=== PATIENT | male | born 1940 | race Caucasian/White ===

== ENCOUNTER 2016-11-19 10:24 | Emergency (ER) | payer MEDICARE ==
[~2016-11-19] VITALS: Ht 172.7 cm; Wt 104.5 kg
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
[2016-11-19 10:24] VITALS: BP 165/105; PULSE 70; RESP 17; O2SAT 93
[~2016-11-19 10:24] MED LIST: ASCO500T PO; ASPI81TA40 PO; CARV12.5 PO; GLUC1TAB57 PO; LIP40 PO; MVI PO; OMEG500C3 PO; TAM4 PO
[2016-11-19] MEDS ORDERED: 0.9% Sodium Chloride 500 ML IV ONE (10:35)
[2016-11-19] MEDS: HYDROmorphone 0.5 mg/0.5 mL iSecure Syringe IVPUSH PRN ×2 (10:42→12:02)
[2016-11-19 11:00] LABS: BASOPHILS % (AUTO) 0.3 % (0-3); EOSINOPHILS % (AUTO) 2.5 % (0-5); MONOCYTES % (AUTO) 5.8 % (4-12); Mean Corpuscular Hemoglobin 30.9 pg (27.0-35.0); Mean Corpuscular Volume 90.4 fL (81-100); NEUTROPHILS % (AUTO) 82.3 % (40-74); Platelet Count 167 bil/L (150-400)
--- NOTE | 2016-11-19 11:20 | DRSVH ---
PROCEDURE: X-RAY RIGHT HUMERUS, MINIMUM TWO VIEWS ([id number]) INDICATIONS: fall TECHNIQUE: 3 views of the humerus were acquired. COMPARISON: None. FINDINGS: Bones: Displaced proximal humerus fracture is noted. Fracture lucencies extend into the humeral head. Soft tissues: No suspicious soft tissue calcifications. IMPRESSION: Comminuted proximal humerus fracture. Dictated by: Myah Robertson MD, PhD on 11/19/2016 at 11:17 Approved by: Myah Robertson MD, PhD on 11/19/2016 at 11:18
--- NOTE | 2016-11-19 11:20 | DRSVH ---
PROCEDURE: X-RAY CHEST ONE VIEW, PORTABLE ([id number]) INDICATIONS: fall TECHNIQUE: One view of the chest was acquired. COMPARISON: [facility], CR, XR CHEST 2VW, 05/23/2015, 16:15. FINDINGS: Surgical changes and devices: None. Lungs and pleura: The left-sided pleural fluid collection is noted. Mediastinum: Mediastinal contours appear normal. Heart size is normal. Bones and chest wall: No suspicious bony lesions. Overlying soft tissues appear unremarkable. IMPRESSION: Nonspecific left-sided pleural fluid collection. Dictated by: Myah Robertson MD, PhD on 11/19/2016 at 11:18 Approved by: Myah Robertson MD, PhD on 11/19/2016 at 11:19
[2016-11-19 11:23] LABS: Magnesium 1.9 mg/dL (1.6-2.6)
--- NOTE | 2016-11-19 11:47 | DRSVH ---
PROCEDURE: CT BRAIN WITHOUT CONTRAST ([id number]) INDICATIONS: fall onto cement from second stair TECHNIQUE: Noncontrast 4.5 mm thick angled axial sections acquired from the foramen magnum to the vertex, with c oronal reformats. COMPARISON: None. FINDINGS: Image quality: Excellent. CSF spaces: Basal cisterns are patent. No extra-axial fluid collections. The ventricles are symmet tre in size and shape. Brain: No intracranial bleeds or masses. There is cerebral volume loss for age, with resultant vent ricular and sulcal prominence. There are periventricular and deep white matter chronic small vessel ischemic changes. There is intracranial internal carotid artery and vertebral artery atherosclerosis . Skull and face: Calvarium and visualized facial bones appear intact, without suspicious lesions. Sinuses: Bilateral maxillary sinus mucus attention cyst versus polyps. The mastoids are clear. IMPRESSION: No acute intracranial disease process. Dictated by: Myah Robertson MD, PhD on 11/19/2016 at 11:42 Approved by: Myah Robertson MD, PhD on 11/19/2016 at 11:45
[2016-11-19 12:03] VITALS: BP 158/74; PULSE 69; RESP 20; O2SAT 91
--- NOTE | 2016-11-19 12:58 | NUR ---
spiritual care: ed staff response supportive care, family. Pt is brother to pt in room 9 also receiving treatment (airlift to [facility]) family supportive and receiving medical updates/processing and planning. Addendum: 11/19/16 at 1438 by ADRY STYLES CM follow up: conversational visit as pt and SO shared medical updates and processed the day's events. supportive listening.
[2016-11-19 14:15] VITALS: BP 132/82; PULSE 70; RESP 13; O2SAT 90
[2016-11-19] MEDS ORDERED: HYDR-4003 PO (14:29)
[2016-11-19] MEDS ORDERED: DOCU-41 PO (14:29)
[2016-11-19 15:58] VITALS: BP 137/74; PULSE 68; RESP 16; O2SAT 98
[2016-11-19] MEDS ORDERED: HYDROcodone-APAP 5-325 mg Tablet PO ONE (16:15)
[2016-11-19 16:50] VITALS: BP 137/74; PULSE 68; RESP 16; O2SAT 98
[2016-12-03] MEDS ORDERED: CARV12.52 PO (14:41)
[2016-12-03] MEDS ORDERED: DOCO1CAP3 PO (14:41)
[2016-12-03] MEDS ORDERED: IPRA4AER IH (14:41)
[2016-12-03] MEDS ORDERED: ALBU2.5V4 INHALATION (14:41)
[2016-12-03] MEDS ORDERED: LIP40 PO (14:41)
[2016-12-03] MEDS ORDERED: MULT-1018 PO (14:41)
[2016-12-03] MEDS ORDERED: ASPI-973 PO (14:41)
[2016-12-03] MEDS ORDERED: TAMS0.4C98 PO (14:42)
[2016-12-03] MEDS ORDERED: DOCU-41 PO (14:42)
[2016-12-03] MEDS ORDERED: FUR20 PO (14:42)
[2016-12-03] MEDS ORDERED: FLUT12AE10 IH (14:42)
[2016-12-03] MEDS ORDERED: CHOL10008 PO (14:42)
[2016-12-03] MEDS ORDERED: TRAM50TA2 PO (14:42)
[2016-12-03] MEDS ORDERED: HYDR-4003 PO (14:42)
== END 2016-11-19 16:50 | disposition home or self-care (01) ==
LOC: SED 10:24
DX: S42.201A Unspecified fracture of upper end of right humerus, initial encounter for closed fracture (principal); S00.81XA Abrasion of other part of head, initial encounter; W10.8XXA Fall (on) (from) other stairs and steps, initial encounter; Y92.018 Other place in single-family (private) house as the place of occurrence of the external cause; Y93.89 Activity, other specified; Y99.8 Other external cause status; I10 Essential (primary) hypertension; I25.2 Old myocardial infarction; J44.9 Chronic obstructive pulmonary disease, unspecified; Z95.818 Presence of other cardiac implants and grafts; Z85.46 Personal history of malignant neoplasm of prostate; Z79.82 Long term (current) use of aspirin
CPT/HCPCS: 36415; 70450; 71010; 73060; 80053; 83735; 85025; 96374; 99285; J1170; J7040

== ENCOUNTER 2016-12-05 11:02 | Day surgery (SDC) | payer MEDICARE ==
[~2016-12-05] VITALS: Ht 172.7 cm; Wt 103.6 kg
[2016-12-05] VITALS (8 sets, daily range): BP systolic 122–160; BP diastolic 71–87; PULSE 76–90; RESP 16–20; O2SAT 90–100
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
[~2016-12-05 11:02] MED LIST changes: +ALBU2.5V4 INHALATION; -ASCO500T PO; +ASPI-973 PO; -ASPI81TA40 PO; +Bupivacaine Liposome 1.3% 20 mL Inj INFILTRATE ONE; -CARV12.5 PO; +CARV12.52 PO; +CHOL10008 PO; +CeFAZolin 2 Gm/50 mL D5W IV Premix IV ONE; +DOCO1CAP3 PO; +DOCU-41 PO; +FLUT12AE10 IH; +FUR20 PO; -GLUC1TAB57 PO; +HYDR-4003 PO; +Hip/Knee Infiltration Cocktail IM ONE; +IPRA4AER IH; +MULT-1018 PO; -MVI PO; -OMEG500C3 PO; -TAM4 PO; +TAMS0.4C98 PO; +TRAM50TA2 PO
[2016-12-05] MEDS ORDERED: Phenylephrine/NS 100 mCg/mL 10 mL Syringe IVPUSH ONE (11:03)
[2016-12-05] MEDS ORDERED: Ondansetron 2 mg/mL 2 mL Inj ONE (11:03)
[2016-12-05] MEDS ORDERED: Propofol 10 mg/mL 20 mL Inj ONE (11:03)
[2016-12-05] MEDS ORDERED: MeTOProlol 1 mg/mL 5 mL Inj ONE (11:03)
[2016-12-05] MEDS ORDERED: Rocuronium 10 mg/mL 5 mL Inj ONE (11:03)
[2016-12-05] MEDS ORDERED: Dexamethasone 4 mg/mL Inj ONE (11:03)
[2016-12-05] MEDS ORDERED: fentaNYL-PF 50 mCg/mL 2 mL Inj ONE (11:03)
[2016-12-05] MEDS: Lactated Ringer's 1,000 ML IV SCH ×3 (12:04→17:40)
[2016-12-05] MEDS ORDERED: CeFAZolin 2 Gm/50 mL D5W Duplex Bag IV ONE (12:09)
[2016-12-05] MEDS ORDERED: Lactated Ringer's 1,000 ML IV SCH (13:36)
[2016-12-05] MEDS ORDERED: Lactated Ringer's 500 ML IV PRN (13:36)
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
[2016-12-05] MEDS ORDERED: Atropine 0.4 mg/mL Inj IVPUSH PRN (13:40)
[2016-12-05] MEDS ORDERED: Phenylephrine 10,000 mCg/mL Inj IVPUSH PRN (13:40)
[2016-12-05] MEDS ORDERED: EPHEDrine Sulfate 50 mg/mL Inj IVPUSH PRN (13:40)
[2016-12-05] MEDS ORDERED: HYDROmorphone 1 mg/mL Inj IVPUSH PRN (13:40)
[2016-12-05] MEDS ORDERED: Ondansetron 2 mg/mL 2 mL Inj IVPUSH PRN (13:40)
[2016-12-05] MEDS ORDERED: fentaNYL-PF 50 mCg/mL 2 mL Inj IVPUSH PRN (13:40)
[2016-12-05] MEDS ORDERED: Dexamethasone 4 mg/mL Inj IVPUSH PRN (13:40)
[2016-12-05] MEDS ORDERED: MetoCLOpramide 5 mg/mL 2 mL Inj IVPUSH PRN (13:40)
[2016-12-05] MEDS ORDERED: Labetalol 5 mg/mL 4 mL Inj IV PRN (13:40)
[2016-12-05] MEDS ORDERED: Albuterol-Ipratropium 3 mL Inhalation Solution NEB PRN (13:40)
[2016-12-05] MEDS ORDERED: Ketorolac 15 mg/mL Inj IVPUSH ONE (14:10)
[2016-12-05] MEDS ORDERED: HYDROcodone-APAP 5-325 mg Tablet PO PRN (14:10)
--- NOTE | 2016-12-05 14:13 | PCM.ORTHOP ---
Orthopedic Operative Report Date of Service: Dec 05, 2016 Pre Operative Diagnosis Right proximal humerus fracture, humeral shaft fracture Post Operative Diagnosis Same Procedure Right proximal humerus and humeral shaft open reduction internal fixation Surgeon Surgeon: Bharat Mitchell MD Assistants: Varun Gordon Indication for Procedure Right humerus fracture Findings Per dictation Details of Procedure Implant: periarticular Synthes proximal humerus plate 8 hole Indications: Arnulfo Mata is a 76-year-old male with a right humerus shaft fracture after fall. The patient reports severe recalcitrant pain in arm. The patient elected for operative treatment. A clear explanation was given to the patient regarding the condition present, and the available conservative and surgical options. It was emphasized that the risks and benefits of surgery include but are not limited to infection, wound healing problems, damage to adjacent structures such as nerves, blood vessels and tendons, termite control representative disability and pain, arthritis, hypersensitivity, deep vein thrombosis, pulmonary embolism, broken hardware, failure of surgery, need for further procedures at time of surgery or later, cast related problems, loss of limb or life. The patient was given an explanation and the patient voiced understanding of what to expect after the procedure or surgery, the limitations in activities of daily living, the likely duration for post operative recovery and the instructions that are to be followed. At the end the patient was invited to seek clarification or ask further questions but there were none. The patient voiced understanding of the entire consultation. Description of Operation: Patient taken to operating room and transferred to operating table in supine position. Time out was performed with both anesthesia and orthopaedics faculty present to confirm details of case to be performed. After time out performed, patient placed under general anesthesia and endotracheal tube secured into place. Once endotracheal tube secured, the patient was then positioned supine with a hand table Patient position was again checked to ensure all bony prominences adequately padded. The right arm was prepped and draped in the usual sterile fashion. Preoperative antibiotics were administered. A standard anterolateral approach was made with care dissection with a deltopectoral approach proximally and between the biceps and brachialis at the mid shaft and between the brachialis and brachioradialis distally. The radial nerve was identified and protected throughout the procedure. Blunt dissection was used to carefully expose the fracture site medially and laterally on the mid-shaft and proximal humerus. Care was taken to not damage nearby neurovascular structures. The fracture appeared to have a large spiral fragment that was spiral in nature and amenable to lag screw and locking plating. The anterolateral aspect of humerus was cleared of soft tissue and radial nerve for placement of the plate. A Rongeur was used to clean the fracture site. The fracture was carefully reduced using reduction clamps and alignment verified in both AP and lateral views with the C-arm. The Synthes plate was placed over the anterolateral aspect of the humerus and secured proximally with locking screws proximally and cortical screws distally. The head was impacted and tamped cephalad. Greater than Six cortices were obtained proximally and eight distally with cortical screws inserted in the standard fashion using the drill guide and depth gauge. Fluoroscopy confirmed anatomic reduction of the fracture in orthogonal views. The wound was thoroughly irrigated by bulb irrigation. Hemostasis was obtained with electrocautery. The aforementioned intervals were closed with 0 Vicryl. The subcutaneous space was closed with interrupted 2-0 Vicryl suture. The skin was closed with 3-0 Nylon suture. Hard copy radiographs confirmed adequate reduction and placement of hardware. The patient was extubated without difficulty and transferred to the PACU in stable condition. I was present for the entire procedure. Description of Findings: mid-shaft and proximal humerus fracture Specimens Obtained: none TAX ASSOCIATE SURGEON: During the operation, the services of physician surgical scrub technician were medically indicated and necessary to provide exposure of the operative site for the surgical procedure and to maintain the limb in a proper position to carry out the operation safely and efficiently. Without the qualified promotional advertising assistant being present, it would have extended the operative procedure and made the procedure technically more difficult to perform. Nonweightbearing to affected upper extremity. Please leave sling on at all times. You may remove sling 3 times a day to move the elbow wrist and fingers. Please keep the affected extremity elevated when possible. You may use ice and/or heat as needed for comfort. Follow-up in 2 weeks with me with 2-view xrays and for suture removal and Steri-Strip application. Follow-up with me at 6 weeks. You will have pain medications, medication for constipation and continue your aspirin 81 qdaily Grafts, Implants: Implants-See Implant Record Complications There were no periprocedural complications identified. Condition Stable Anesthetic Administered: GA Output, Estimated Blood Loss: 50 Blood Admin during surgery: No Surgical Cast or Splint: Other Surgical Specimen Removed: No Specimen sent to Pathology: No copies to: Bharat Mitchell MD, Christopher L MD Dec 05, 2016 14:13
--- NOTE | 2016-12-05 17:21 | PCM.ANEP1 ---
Post Anesthesia PACU Phase 1 Assessment Date of Service: Dec 05, 2016 Vital Signs Vital Signs Date Time Temp Pulse Resp B/P Pulse Ox O2 Delivery O2 Flow Rate FiO2 12/05/16 17:15 36.6 76 18 151/72 100 Simple Mask 9 12/05/16 12:00 Supplement Oxygen 12/05/16 11:46 36.5 90 18 160/87 94 Room Air Anesthetic Administered: GA, Regional Block Level of Alertness: Awake, talking SALTER's with Equal Strength: No Pain: No Nausea or Vomiting: No CV Function & Hydration Stable: Yes Airway Device: Oxygen Delivery: Simple Mask Lungs: Normal Air Movement PACU Phase 2 Assessment Complications: No Follow up Care: N/A Patient Instructions Provided: N/A Bharat Cardona MD Dec 05, 2016 17:21
== END 2016-12-05 23:59 | disposition home or self-care (01) ==
LOC: SAS 11:02
PROVIDERS: ATTEND Orthopaedic Surgery
DX: S42.291A Other displaced fracture of upper end of right humerus, initial encounter for closed fracture (principal); S42.301A Unspecified fracture of shaft of humerus, right arm, initial encounter for closed fracture; I12.9 Hypertensive chronic kidney disease with stage 1 through stage 4 chronic kidney disease, or unspecified chronic kidney disease; N18.3 Chronic kidney disease, stage 3 (moderate); I25.10 Atherosclerotic heart disease of native coronary artery without angina pectoris; J43.8 Other emphysema; J44.9 Chronic obstructive pulmonary disease, unspecified; I25.2 Old myocardial infarction; W10.8XXA Fall (on) (from) other stairs and steps, initial encounter; Y93.F9 Activity, other caregiving; Y92.9 Unspecified place or not applicable; Y99.8 Other external cause status; Z95.5 Presence of coronary angioplasty implant and graft; Z85.46 Personal history of malignant neoplasm of prostate; Z79.82 Long term (current) use of aspirin; Z87.891 Personal history of nicotine dependence; Z85.840 Personal history of malignant neoplasm of eye
CPT/HCPCS: 24515; 76001; 76942; C1713; J0690; J1100; J2370; J2405; J3010; J7120

== ENCOUNTER 2017-01-15 12:35 | Emergency (ER) | payer MEDICARE ==
[~2017-01-15] VITALS: Ht 170.2 cm; Wt 104.5 kg
[~2017-01-15 12:35] MED LIST changes: -Bupivacaine Liposome 1.3% 20 mL Inj INFILTRATE ONE; -CeFAZolin 2 Gm/50 mL D5W IV Premix IV ONE; -Hip/Knee Infiltration Cocktail IM ONE
[2017-01-15 12:53] VITALS: BP 135/69; PULSE 69; RESP 12; O2SAT 93
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
[2017-01-15] MEDS ORDERED: MethylprednisoLONE Sodium Succinate 62.5 mg/mL 2 mL Inj IVPUSH ONE (13:35)
[2017-01-15] MEDS ORDERED: Albuterol-Ipratropium 3 mL Inhalation Solution NEB ONE (13:35)
--- NOTE | 2017-01-15 14:30 | DRSVH ---
PROCEDURE: X-RAY CHEST ONE VIEW, PORTABLE ([id number]) INDICATIONS: 76-year-old male with dyspnea. TECHNIQUE: One view of the chest was acquired. COMPARISON: [facility], CR, XR CHEST 2VW, 05/23/2015, 16:15. [facility], C T, CT CHEST WO CON, 06/15/2015, 12:33. [facility], CR, XR CHEST 1VW (PORTABLE), 7, 10:46. FINDINGS: Surgical changes and devices: Old humeral head fracture and post surgical changes noted. Lungs and pleura: There is chronic left basilar opacity, likely combination of scarring, atelectasis , pleural thickening and loculated pleural effusion. Cannot exclude superimposed mass or acute pneumo brigido. No pneumothorax. Mediastinum: Mediastinal contours appear normal. Heart size is normal. Bones and chest wall: No suspicious bony lesions. Overlying soft tissues appear unremarkable. IMPRESSION: 1. There is chronic left basilar opacity consistent with combination of scar, atelectasis pleural thi ckening and loculated pleural effusion, but superimposed acute pneumonia or mass can't be excluded. R ecommend short interval followup chest x-ray. Dictated by: Dayanna Al M.D. on 01/15/2017 at 13:24 Approved by: Dayanna Al M.D. on 01/15/2017 at 13:28
--- NOTE | 2017-01-15 15:32 | DRSVH ---
PROCEDURE: CT BRAIN WITHOUT CONTRAST ([id number]) INDICATIONS: gait instability TECHNIQUE: Noncontrast 4.5 mm thick angled axial sections acquired from the foramen magnum to the vertex, with c oronal reformats. COMPARISON: [facility], CT, CT BRAIN WO CON, 11/19/2016, 11:37. FINDINGS: Image quality: Excellent. CSF spaces: Basal cisterns are patent. No extra-axial fluid collections. The ventricles are symmet tre in size and shape. Brain: No intracranial bleeds or masses. There is cerebral volume loss for age, with resultant vent ricular and sulcal prominence. There are extensive periventricular and deep white matter chronic sma ll vessel ischemic changes. There is intracranial internal carotid artery atherosclerosis. Skull and face: Calvarium and visualized facial bones appear intact, without suspicious lesions. Sinuses: A left maxillary sinus mucus retention cyst is partially characterize. Visualized sinuses an d mastoids are otherwise clear. IMPRESSION: 1. No acute intracranial findings. 2. Extensive findings likely associated with chronic microvascular ischemic changes. Dictated by: Juany Hummel M.D. on 01/15/2017 at 15:27 Approved by: Juany Hummel M.D. on 01/15/2017 at 15:30
[2017-01-15 15:34] LABS: BASOPHILS % (AUTO) 0.3 % (0-3); EOSINOPHILS % (AUTO) 3.2 % (0-5); MONOCYTES % (AUTO) 6.5 % (4-12); Mean Corpuscular Hemoglobin 30.8 pg (27.0-35.0); Mean Corpuscular Volume 92.3 fL (81-100); NEUTROPHILS % (AUTO) 79.2 % (40-74); Platelet Count 192 bil/L (150-400)
[2017-01-15 15:57] LABS: TROPONIN T < 0.010 ug/L (0.0-0.011)
[2017-01-15 16:07] LABS: Magnesium 2.2 mg/dL (1.6-2.6)
[2017-01-15 17:32] VITALS: BP 181/93; PULSE 86; RESP 21; O2SAT 95
--- NOTE | 2017-01-15 18:47 | DRSVH ---
PROCEDURE: CT ANGIO CHEST PULMONARY EMBOLISM ([id number]) INDICATIONS: dyspnea, elevated ddimer TECHNIQUE: After the administration of intravenous contrast, 2 mm thick sections acquired from the pulmonary api cindy to the posterior costophrenic angles. 3-dimensional maximum intensity projection (MIP) coronal a nd sagittal reformats were then acquired through the thorax. For radiation dose reduction, the follo wing was used: automated exposure control, adjustment of mA and/or kV according to patient size. COMPARISON: None. FINDINGS: Image quality: Excellent. Pulmonary arteries: Pulmonary arteries are normal in size, and demonstrate no intraluminal filling d efects to suggest central pulmonary embolism. Lungs and pleura: Airways are patent. Interval enlargement of still small possibly exudative left-fatou ed pleural effusion now measuring 2 cm at its thickest portion. There is left lower lobe masslike ate lectasis. There are several 7 mm left lower lobe pulmonary nodules (se 5 im 34). Left pleural calcifi cations. Scattered minimal right pleural calcifications with dependent atelectasis. Mediastinum: Mild cardiac enlargement with thinning of the left ventricular apex consistent with prev ious infarction. Trace pericardial effusion. No mediastinal or hilar adenopathy. Thoracic aorta is normal in caliber and enhancement. Diffuse esophageal wall thickening. No esophageal hiatal hernia.. Bones and chest wall: No suspicious bony lesions. Ribs and thoracic spine appear intact throughout. Thyroid gland is present and contains a 1.8 cm right thyroid nodule ( se 4 im 12). No axillary or supraclavicular adenopathy. 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 Abdomen: Fatty infiltration the liver were seen. Partially visualized superior renal pole mass is mos t consistent with benign cysts. Otherwise upper abdominal solid organs appear normal in the early art erial phase of enhancement. IMPRESSION: 1. No acute pulmonary emboli. 2. Minimally enlarged left sided pleural effusion which is overall small and likely not amenable to p ercutaneous guided sampling. Left basilar mass like pulmonary opacity most consistent with rounded at electasis. This could be confirmed with a PET/CT if needed. 3. Several smaller left lower lobe pulmonary nodules measuring 7 mm. Recommend followup as described in the Fleischner criteria below. 4. Left ventricular apical wall thinning consistent with previous infarction. 5. Diffuse esophageal wall thickening is likely inflammatory. No discrete masses. Consider correlatio n with endoscopy is needed. 6. Right thyroid 1.8 cm nodule. Recommend thyroid ultrasound for further evaluation on a nonemergent basis. Fleischner Society criteria for SOLID lung nodule followup. Nodule size (mm)Low-risk patientHigh-risk [id number] follow-up neededFollow-up at 12 mo; if no suárez e, no further follow-up>9-0Arvhdo-mg CT at 12 mo; if no change, no further follow-up needed.Initial f ollow-up CT at 6-12 mo, then 18-24 mo if no change. >6-8Initial follow-up CT at 6-12 mo, then 18-24 mo if no change. Initial follow-up CT at 3-6 mo, then 9-12 mo and 24 mo if no change. >8Follow-up CT at 3, 9, 24 mo. Or PET and/or biopsy.Same as for low-risk pts. Fleischner Society criteria for SUB-SOLID lung nodule followup. Solitary pure ground-glass nodules5 mm or lessNo followup needed. >5 mm3 mo follow-up CT to confirm persistence. Then annual CT for 3 years. Part-solid nodules3 mo follow-up CT to confirm persistence . If persistent with solid component <5 mm, annual CT for at least 3 years. If solid component is 5 mm or more, biopsy or surgical resection. Consider PET-CT for lesions > 10 mm. Multiple sub-solid nodulesPure ground glass nodules [address] at 2 and 4 years. Pure ground glass nodules >5 mm without dominant lesion. [address] to confirm persistence, then annual followup CT for at least 3 years. Dominant nodule(s) with part-solid or solid component. [address] to confirm persistence. If persistent, consider biopsy or surgical resection, jessica if lesions have >5 m m solid component. Dictated by: Tee Layne M.D. on 01/15/2017 at 18:35 Approved by: Tee Layne M.D. on 01/15/2017 at 18:46
[2017-01-15 19:16] VITALS: BP 185/95; PULSE 88; RESP 20; O2SAT 93
== END 2017-01-15 19:17 | disposition home or self-care (01) ==
LOC: SED 12:35
DX: R55 Syncope and collapse (principal); R91.8 Other nonspecific abnormal finding of lung field; R91.1 Solitary pulmonary nodule; W18.30XA Fall on same level, unspecified, initial encounter; Y93.01 Activity, walking, marching and hiking; Y92.9 Unspecified place or not applicable; Y99.8 Other external cause status; I10 Essential (primary) hypertension; J44.9 Chronic obstructive pulmonary disease, unspecified; I25.2 Old myocardial infarction; Z85.46 Personal history of malignant neoplasm of prostate; Z95.5 Presence of coronary angioplasty implant and graft; Z79.82 Long term (current) use of aspirin
CPT/HCPCS: 36415; 70450; 71010; 71275; 80053; 83735; 83880; 84484; 85025; 85378; 93005; 96361; 96374; 99285; G0480; J2930; J7620; Q9967